=== PATIENT | female | born 1980 | race Asian ===

== ENCOUNTER 2019-05-21 22:59 | Emergency (ER) | payer OTHER ==
[~2019-05-21] VITALS: Ht 157.5 cm; Wt 72.6 kg
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
[2019-05-21] MEDS ORDERED: HYDROCODONE/APAP 5/325MG 1 EACH TABLET ONE (23:15)
[2019-05-21] MEDS ORDERED: HYDROCODONE/APAP 5/325MG 1 EACH TABLET PO ONE (23:30)
--- NOTE | 2019-05-21 23:45 | NUR ---
PT TAKEN TO CT
--- NOTE | 2019-05-22 00:10 | NUR ---
PT BACK FROM CT
--- NOTE | 2019-05-22 00:40 | NUR ---
PD COOL AT BEDSIDE #[id number]
--- NOTE | 2019-05-22 01:39 | NUR ---
Patient discharged to home in stable condition. Written and verbal after care instructions given. Patient verbalizes understanding of instruction.
[2019-05-22 01:55] VITALS: BP 118/67
== END 2019-05-22 01:57 | disposition home or self-care (01) ==
LOC: ER 23:01
DX: S29.012A Strain of muscle and tendon of back wall of thorax, initial encounter (principal); S09.8XXA Other specified injuries of head, initial encounter; M62.838 Other muscle spasm; I50.9 Heart failure, unspecified; Z88.0 Allergy status to penicillin; V49.59XA Passenger injured in collision with other motor vehicles in traffic accident, initial encounter; Y93.89 Activity, other specified; Y92.413 State road as the place of occurrence of the external cause; Y99.8 Other external cause status
CPT/HCPCS: 70450; 71045; 72074; 72125; 99284; J7030